=== PATIENT | female | born 1965 | race Caucasian/White ===

== ENCOUNTER → 2019-04-04 | Outpatient (CLI) | payer OTHER | LOC: M SMT 11:15 | PROVIDERS: ATTEND Nurse Practitioner | DX: Z11.59 Encounter for screening for other viral diseases (principal) ==

== ENCOUNTER 2024-01-31 07:51 | Day surgery (SDC) | payer OTHER ==
[~2024-01-31] VITALS: Ht 165.1 cm; Wt 77.0 kg
[~2024-01-31 07:51] MED LIST: CALC600C3 PO; D-101000 PO; OMEG10002 PO; PHENYLEPHRINE 10% OPHTH SOL 5ML OD PRN; THERTAB52 PO
[2024-01-31] MEDS ORDERED: MIDAZOLAM INJ 2MG/2ML VIAL As Ordered ONE (07:52)
[2024-01-31] MEDS ORDERED: fentaNYL 100 MCG/2 ML INJECTION As Ordered ONE (07:52)
[2024-01-31] MEDS: ATROPINE SULFATE 1% OPHTH SOLN 2ML BTL OD SCH (08:22)
[2024-01-31] MEDS: PHENYLEPHRINE 2.5% OPHTH SOL 2ML OD SCH (08:22)
[2024-01-31] MEDS: TROPICAMIDE 1% OPHTH SOLN 15ML OD SCH (08:22)
[2024-01-31] MEDS: OFLOXACIN 0.3 % (OCUFLOX) OPTH SOL 5ML OD ONE (08:22)
[2024-01-31] MEDS: LIDOCAINE 3.5 % 1ML OPHTH TOPICAL GEL OU ONE (08:24)
[2024-01-31] MEDS: BSS IRRIG/VANCO(10MG)/TOBRA(5MG)/EPINEPH(1:1000-0.5CC)500ML BAG-ORONLY As Ordered ONE (10:38)
[2024-01-31] MEDS: CEFUROXIME 1MG/0.1ML INTRACAMERAL INJ As Ordered ONE (10:38)
[2024-01-31] MEDS: LIDOCAINE 1% SDV 5ML VIAL As Ordered ONE (10:38)
[2024-01-31 10:57] VITALS: BP 135/73; TEMP 97; O2SAT 99
== END 2024-01-31 11:26 | disposition home or self-care (01) ==
LOC: M SDC 07:51
PROVIDERS: ATTEND Ophthalmology
DX: H25.11 Age-related nuclear cataract, right eye (principal)
CPT/HCPCS: 66984; 92015; J0697; J2250; J3010; V2788